=== PATIENT | male | born 1970 | race Caucasian/White ===

== ENCOUNTER 2018-02-24 14:50 | Outpatient (RCR) | payer OTHER ==
[~2018-02-24 14:50] MED LIST: ASPI1TAB PO; OXYC-471 PO
== END 2018-02-27 07:45 | disposition home or self-care (01) ==
PROVIDERS: ATTEND Orthopaedic Surgery
DX: M25.512 Pain in left shoulder (principal); Z98.890 Other specified postprocedural states

== ENCOUNTER 2018-03-13 15:00 | Outpatient (RCR) | payer OTHER | END 2018-04-26 10:02 | disposition home or self-care (01) | PROVIDERS: ATTEND Orthopaedic Surgery | DX: M25.512 Pain in left shoulder (principal); Z98.890 Other specified postprocedural states ==

== ENCOUNTER 2018-12-23 22:31 | Emergency (ER) | payer SELFPAY ==
[~2018-12-23] VITALS: Ht 179.1 cm; Wt 162.4 kg
--- OUTSIDE RECORDS SUMMARY | 2018-12-23 22:38 | XMS REPORT ---
Author Author Migration, Doctor Organization [facility] Address Unknown Phone Unavailable Care Team Providers Care Steamer Blocker Name Role Phone Migration, Doctor Unavailable Unavailable PROBLEMS Unknown Problems ALLERGIES No Information ENCOUNTERS Encounter Location Date Diagnosis [facility] [address] [place] [address] September, Drug screening, pre-employment Z02.1 [facility] [id number] [place] [address] Dec, [facility] [id number] [place] [address] Dec, [facility] [id number] [place] [address] Nov, Acute pain of left shoulder M25.512 ; BMI 45.0-49.9, adult Z68.42 and Elevated blood pressure reading R03.0 [facility] [id number] [place] [address] Nov, Acute pain of left shoulder M25.512 ; Strain of left trapezius muscle, initial encounter S46.812A and BMI 45.0-49.9, adult Z68.42 [facility] [id number] [place] [address] September, Pain in left ankle and joints of left foot M25.572 and Other chronic pain G89.29 [facility] [id number] [place] [address] Aug, [facility] [id number] [place] [address] Aug, [facility] [id number] [place] [address] Jun, [facility] [id number] [address] Jun, [facility] [address] [address] Dec, [facility] [address] [address] Nov, [facility] [address] [address] Oct, [facility] [address] [address] Jul, [facility] [address] [place] [address] May, [facility] [address] [address] Mar, [facility] [address] [address] Mar, [facility] [address] [address] Dec, [facility] [id number] [address] Dec, IMMUNIZATIONS No Known Immunizations SOCIAL HISTORY Never Assessed REASON FOR VISIT [facility] [place] OF CARE VITAL SIGNS MEDICATIONS Unknown Medications RESULTS No Results PROCEDURES No Known procedures INSTRUCTIONS MEDICATIONS ADMINISTERED No Known Medications MEDICAL (GENERAL) HISTORY Type Description Date Medical History Essential hypertension, benign Medical History Pain in joint, site unspecified Surgical History appendectomy Surgical History cardiac cath Surgical History eye surgery as an Surgical History tubes in the ear
--- OUTSIDE RECORDS SUMMARY | 2018-12-23 22:38 | XMS REPORT ---
Author Author Migration, Doctor Organization [facility] Address Unknown Phone Unavailable Care Team Providers Care Internal Audit Senior Manager Name Role Phone Migration, Doctor Unavailable Unavailable PROBLEMS Unknown Problems ALLERGIES No Information ENCOUNTERS Encounter Location Date Diagnosis [facility] [address], [place] [address] Dec, [facility] [id number] [address] Dec, [facility] [id number] [place] [address] Nov, Acute pain of left shoulder M25.512 ; BMI 45.0-49.9, adult Z68.42 and Elevated blood pressure reading R03.0 [facility] [address] [place] [address] Nov, Acute pain of left shoulder M25.512 ; Strain of left trapezius muscle, initial encounter S46.812A and BMI 45.0-49.9, adult Z68.42 [facility] [address], [place] [address] September, Pain in left ankle and joints of left foot M25.572 and Other chronic pain G89.29 [facility] [address], [place] [address] Aug, [facility] [address], [place] [address] Aug, [facility] [id number] [place] [address] Jun, [facility] [address], [place] [address] Jun, [facility] [id number] [address] Dec, [facility] [id number], [place] [address] Nov, [facility] [address], [place] [address] Oct, [facility] [id number], [place] [address] Jul, [facility] [address], [place] [address] May, [facility] [address], [place] [address] Mar, [facility] [address], [place] [address] Mar, [facility] [address], [place] [address] Dec, [facility] [id number], [place] [address] Dec, IMMUNIZATIONS No Known Immunizations SOCIAL HISTORY Never Assessed REASON FOR VISIT [facility] PLAN OF CARE VITAL SIGNS MEDICATIONS Medication Instructions Dosage Frequency Start Date End Date Duration Status Flonase 50 mcg/actuation 1 sprays by Nasal route 2 times per day in each nostril. MUST HAVE APPT FOR FURTHER REFILLS Jun, Active Furosemide 20 mg 1 tablet by Oral route 1 time per day Nov, Active Wellbutrin SR 150 mg 1 Tablet 2 times per day MUST HAVE APPT FOR FURTHER REFILLS Jun, Active Lisinopril-Hydrochlorothiazide 10-12.5 mg take 1 tablet by Oral route 1 time per day MUST HAVE APPT FOR FURTHER REFILLS Jun, Active Potassium Chloride 10 mEq 10 mEq by Oral route 1 time per day take with lasix Nov, Active RESULTS No Results PROCEDURES No Known procedures INSTRUCTIONS MEDICATIONS ADMINISTERED No Known Medications MEDICAL (GENERAL) HISTORY Type Description Date Medical History Essential hypertension, benign Medical History Pain in joint, site unspecified Surgical History appendectomy Surgical History cardiac cath Surgical History eye surgery as an infant Surgical History tubes in the ear
--- OUTSIDE RECORDS SUMMARY | 2018-12-23 22:38 | XMS REPORT ---
Author Author MEGHAN MARX [facility] Address [address] [place] [address] Care Team Providers Care Senior Underwriting Assistant Name Role Phone SHARON MARXTA Unavailable PROBLEMS Unknown Problems ALLERGIES No Known Allergies ENCOUNTERS Encounter Location Date Diagnosis [facility] [address] [place] [address] Dec, [facility] [id number] [place] [address] Dec, [facility] [id number] [place] [address] Nov, Acute pain of left shoulder M25.512 ; BMI 45.0-49.9, adult Z68.42 and Elevated blood pressure reading R03.0 [facility] [address] [place] [address] Nov, Acute pain of left shoulder M25.512 ; Strain of left trapezius muscle, initial encounter S46.812A and BMI 45.0-49.9, adult Z68.42 [facility] [address] [place] [address] September, Pain in left ankle and joints of left foot M25.572 and Other chronic pain G89.29 [facility] [address], [place] [address] Aug, [facility] [id number] [place] [address] Aug, [facility] [address], [place] [address] Jun, [facility] [id number] [place] [address] Jun, [facility] [id number], [place] [address] Dec, [facility] [address], [place] [address] Nov, [facility] [address], [place] [address] Oct, [facility] [address], [place] [address] Jul, [facility] [address] [place] [address] May, [facility] [address], [place] [address] Mar, [facility] [address], [place] [address] Mar, [facility] [address], [place] [address] Dec, [facility] [id number], [place] [address] Dec, IMMUNIZATIONS No Known Immunizations SOCIAL HISTORY Never Assessed REASON FOR VISIT [email or web address] Care, He came in last tuesday to walk in, he took all his meds, shoulder is n ot getting any better, [facility] arm [facility] Activity Details Follow Up 3 months or as indicated by lab Reason:HTN VITAL SIGNS Height 71 in 2017-12-27 Weight 342.3 lbs 2017-12-27 Temperature 98.3 degrees Fahrenheit 2017-12-27 Heart Rate 86 bpm 2017-12-27 Respiratory Rate 18 2017-12-27 BMI 47.74 kg/m2 2017-12-27 Blood pressure systolic 140 mmHg 2017-12-27 Blood pressure diastolic 84 mmHg 2017-12-27 MEDICATIONS Medication Instructions Dosage Frequency Start Date End Date Duration Status Hydrocodone-Acetaminophen 5-325 MG Orally every 6 hrs 1 tablet as needed Nov, Dec, 10 days Active RESULTS Name Result Date Reference Range MRI : Shoulder, Left 2018-01-13 PROCEDURES No Known procedures INSTRUCTIONS MEDICATIONS ADMINISTERED No Known Medications MEDICAL (GENERAL) HISTORY Type Description Date Medical History Essential hypertension, benign Medical History Pain in joint, site unspecified Surgical History appendectomy Surgical History cardiac cath Surgical History eye surgery as an infant Surgical History tubes in the ear
--- OUTSIDE RECORDS SUMMARY | 2018-12-23 22:38 | XMS REPORT ---
Author Author KING MEGHAN [facility] Address [address] [place] [address] Care Team Providers Care Fiber Locking Supervisor Name Role Phone SHARON MARXTA Unavailable PROBLEMS Unknown Problems ALLERGIES No Information ENCOUNTERS Encounter Location Date Diagnosis [facility] [address] [address] Dec, [facility] [id number] [place] [address] Dec, [facility] [id number] [place] [address] Nov, Acute pain of left shoulder M25.512 ; BMI 45.0-49.9, adult Z68.42 and Elevated blood pressure reading R03.0 [facility] [address] [place] [address] Nov, Acute pain of left shoulder M25.512 ; Strain of left trapezius muscle, initial encounter S46.812A and BMI 45.0-49.9, adult Z68.42 [facility] [address] [address] September, Pain in left ankle and joints of left foot M25.572 and Other chronic pain G89.29 [facility] [address] [address] Aug, [facility] [id number] [place] [address] Aug, [facility] [address] [address] Jun, [facility] [id number] [place] [address] Jun, [facility] [address] [address] Dec, [facility] [address] [address] Nov, [facility] [address] [address] Oct, [facility] [address] [place] [address] Jul, [facility] [address] [place] [address] May, [facility] [id number] [place] [address] Mar, [facility] [address] [address] Mar, [facility] [address] [address] Dec, [facility] [address] [address] Dec, IMMUNIZATIONS No Known Immunizations SOCIAL HISTORY Never Assessed REASON FOR VISIT scheduling an a MRI PLAN OF CARE VITAL SIGNS MEDICATIONS Unknown [...]
--- OUTSIDE RECORDS SUMMARY | 2018-12-23 22:39 | XMS REPORT ---
Author Author KING MEGHAN [facility] Address [address] [place] [address] Care Team Providers Care Instrument Mechanics Supervisor Name Role Phone SHARON MARXTA Unavailable PROBLEMS Unknown Problems ALLERGIES No Information ENCOUNTERS Encounter Location Date Diagnosis [facility] [address], [place] [address] Dec, [facility] [id number] [place] [address] Dec, [facility] [id number] [place] [address] Nov, Acute pain of left shoulder M25.512 ; BMI 45.0-49.9, adult Z68.42 and Elevated blood pressure reading R03.0 [facility] [address] [place] [address] Nov, Acute pain of left shoulder M25.512 ; Strain of left trapezius muscle, initial encounter S46.812A and BMI 45.0-49.9, adult Z68.42 [facility] [address], [place] [address] September, Pain in left ankle and joints of left foot M25.572 and Other chronic pain G89.29 [facility] [address], [place] [address] Aug, [facility] [id number] [place] [address] Aug, [facility] [address], [place] [address] Jun, [facility] [id number] [place] [address] Jun, [facility] [address], [place] [address] Dec, [facility] [address], [place] [address] Nov, [facility] [address], [place] [address] Oct, [facility] [address] [place] [address] Jul, [facility] [address] [place] [address] May, [facility] [id number] [place] [address] Mar, [facility] [address], [place] [address] Mar, [facility] [address], [place] [address] Dec, [facility] [address], [place] [address] Dec, IMMUNIZATIONS No Known Immunizations SOCIAL HISTORY Never Assessed REASON FOR VISIT MRI status PLAN OF CARE VITAL SIGNS MEDICATIONS Unknown [...]
--- OUTSIDE RECORDS SUMMARY | 2018-12-23 22:39 | XMS REPORT ---
Author Author MEGGAN Gordon Organization [facility] Address [address] [place] [address] Care Team Providers Care Research Assistant Member Name Role Phone MEGGAN Gordon Unavailable PROBLEMS Unknown Problems ALLERGIES No Known Allergies ENCOUNTERS Encounter Location Date Diagnosis [address] [address] [address] Dec, [address] [address] Dec, [place] [address] [address] Nov, Acute pain of left shoulder M25.512 ; BMI 45.0-49.9, adult Z68.42 and Elevated blood pressure reading R03.0 [facility] [id number] [place] [address] Nov, Acute pain of left shoulder M25.512 ; Strain of left trapezius muscle, initial encounter S46.812A and BMI 45.0-49.9, adult Z68.42 [place] [address] [address] September, Pain in left ankle and joints of left foot M25.572 and Other chronic pain G89.29 [place] [id number] [place] [address] Aug, [place] [address] [address] Aug, [place] [id number] [place] [address] Jun, [place] [address] [facility] [id number] [address] Jun, [facility] [id number], [place] [address] Dec, [facility] [address], [place] [address] Nov, [facility] [address], [place] [address] Oct, [facility] [address], [place] [address] Jul, [facility] [address] [place] [address] May, [facility] [address], [place] [address] Mar, [facility] [address], [place] [address] Mar, [facility] [id number], [place] [address] Dec, [facility] [id number], [place] [address] Dec, IMMUNIZATIONS No Known Immunizations SOCIAL HISTORY Never Assessed REASON FOR VISIT left shoulder pain since tuesday. pt was using a heavy machinery et was reachin g around it...states it weighed at least 100 lbs, et felt something pull in his left shoulder. aviva, giovani raise his arm now. PLAN OF CARE Activity Details Follow Up prn Reason: VITAL SIGNS Height 71 in 2017-12-19 Weight 350.0 lbs 2017-12-19 Temperature 98.5 degrees Fahrenheit 2017-12-19 Heart Rate 84 bpm 2017-12-19 Respiratory Rate 20 2017-12-19 BMI 48.81 kg/m2 2017-12-19 Blood pressure systolic 142 mmHg 2017-12-19 Blood pressure diastolic 88 mmHg 2017-12-19 MEDICATIONS Medication Instructions Dosage Frequency Start Date End Date Duration Status PredniSONE 20 MG Orally Once a day 2 tablet 24h Nov, Nov, 5 days Active RESULTS Name Result Date Reference Range Xray : Shoulder, Left 2 view (IN HOUSE) 2017-12-19 PROCEDURES Procedure Date Ordered Result Body Site X-RAY EXAM OF SHOULDER December 19, 2017 INSTRUCTIONS MEDICATIONS ADMINISTERED No Known Medications MEDICAL (GENERAL) HISTORY Type Description Date Medical History Essential hypertension, benign Medical History Pain in joint, site unspecified Surgical History appendectomy Surgical History cardiac cath Surgical History eye surgery as an infant Surgical History tubes in the ear
--- OUTSIDE RECORDS SUMMARY | 2018-12-23 22:39 | XMS REPORT | Continuity of Care Document ---
Author Organization Unknown Address Unknown Phone Unavailable Allergies There is no data. Medications There is no data. Problems Date Dx Coded Attending Type Code Diagnosis Diagnosed By 01/06/2012 401.1 HYPERTENSION, BENIGN ESSENTIAL 01/06/2012 719.40 PAIN IN JOINT SITE UNSPECIFIED 01/06/2012 V70.0 ROUTINE GENERAL MEDICAL EXAMINATION AT A HEALTH CARE FACILITY 01/06/2012 KORI MNOTALVO DO 401.1 ESSENTIAL HYPERTENSION BENIGN 01/06/2012 KORI MONTALVO DO 719.40 ARTHRALGIA 01/06/2012 KORI MONTALVO DO V70.0 ROUTINE GENERAL MEDICAL EXAMINATION AT A HEALTH CARE FACILITY 01/06/2012 401.1 HYPERTENSION, BENIGN ESSENTIAL 01/06/2012 719.40 PAIN IN JOINT SITE UNSPECIFIED 01/06/2012 V70.0 ROUTINE GENERAL MEDICAL EXAMINATION AT A HEALTH CARE FACILITY 04/17/2012 477.9 RHINITIS 04/17/2012 KORI MONTALVO DO 477.9 RHINITIS 04/17/2012 477.9 RHINITIS 06/19/2012 782.3 EDEMA 06/19/2012 V58.69 LONG-TERM (CURRENT) USE OF OTHER MEDICATIONS 06/19/2012 KORI MONTALVO DO 782.3 EDEMA 06/19/2012 KORI MONTALVO DO V58.69 LONG-TERM (CURRENT) USE OF OTHER MEDICATIONS 07/28/2012 KORI MONTALVO DO 368.8 blurry vision Procedures There is no data. Results There is no data. Encounters ACCT No. Visit Date/Time Discharge Status Pt. Type Provider Facility Loc./Unit Complaint [id number] 12/04/2018 17:50:00 12/04/2018 23:59:59 CLS Outpatient MEGHAN MARX [facility] [id number] 07/28/2012 10:08:00 07/28/2012 23:59:59 CLS Outpatient KORI MONTALVO DO [id number] 06/19/2012 10:37:00 06/19/2012 23:59:59 CLS Outpatient [id number] 04/17/2012 15:48:00 04/17/2012 23:59:59 [facility] Outpatient
--- NOTE | 2018-12-23 22:44 | ED EENT ---
History of Present Illness General Chief Complaint: Eye Problems Stated Complaint: RT EYE BURNING/ITCHING/DISCHARGE Source: patient Exam Limitations: no limitations History of Present Illness Date Seen by Provider: Dec 23, 2018 Time Seen by Provider: 22:44 Initial Comments eye scratchiness with discharge, minimal discomfort. Location: eye (R) Prearrival Treatment: flushing eyes Allergies and Home Medications Allergies Coded Allergies: No Known Drug Allergies (Unverified , 11/26/09) Home Medications Ciprofloxacin HCl 5 Ml Drops, 2 DROPS OP QID 3 Drops Each Ear Prescribed by: JOSE MARX on 12/23/18 2322 Oxycodone HCl/Acetaminophen 1 Each Tablet, 1 EACH PO Q4H Prescribed by: BONIFACIO BOYER on 01/25/18 1107 Patient Home Medication List Home Medication List Reviewed: Yes Review of Systems Review of Systems Constitutional: no symptoms reported Eyes: Drainage, Foreign Body Sensation, Inflammation, Pain Ears: No Symptoms Reported Nose: no symptoms reported Mouth: no symptoms reported Throat: no symptoms reported Respiratory: no symptoms reported Cardiovascular: no symptoms reported Skin: no symptoms reported Neurological: No Symptoms Reported Hematologic/Lymphatic: No Symptoms Reported All Other Systems Reviewed Negative Unless Noted: Yes Past Errcrcg-Bnnogb-Uedivr Hx Patient Social History Recent Hopitalizations: No Seasonal Allergies Seasonal Allergies: No Past Medical History Reproductive Disorders: No Physical Exam Vital Signs Vital Signs - First Documented 12/23/18 12/23/18 22:35 23:24 Temp 97.5 Pulse 92 Resp 18 B/P (MAP) 162/97 (118) Pulse Ox 97 O2 Delivery Room Air Height, Weight, BMI Height: 5'11.00" Weight: 348lbs. 0.0oz. 157.591056zi; 48.5 BMI Method: General Appearance: WD/WN, no apparent distress Eyes: right eye conjunctival inflammation Nose: normal inspection Neck: non-tender, full range of motion, supple Respiratory: no respiratory distress, no accessory muscle use Neurologic/Psychiatric: tapping machine operator II-XII nml as tested, no motor/sensory deficits Skin: normal color, warm/dry Progress/Results/Core Measures Results/Orders Vital Signs/I&O 12/23/18 12/23/18 22:35 23:24 Temp 97.5 97.5 Pulse 92 92 Resp 18 18 B/P (MAP) 162/97 (118) 162/97 (118) Pulse Ox 97 O2 Delivery Room Air Room Air Departure Impression Primary Impression: Conjunctivitis Disposition: HOME, SELF-CARE Condition: Stable Departure-Patient Inst. Referrals: NO,LOCAL PHYSICIAN (PCP/Family) Primary Care Physician Scripts Ciprofloxacin HCl (Ciloxan) 5 Ml Drops 2 DROPS OP QID for Eye Redness for 5 Days, #5 ML 0 Refills 3 Drops Each Ear Prov: JOSE LITTLE MD 12/23/18 JOSE LITTLE MD Dec 23, 2018 22:44
[2018-12-23] MEDS ORDERED: CIPR5DRO OP ×2 (23:19→23:22)
[2018-12-23 23:24] VITALS: BP 162/97
== END 2018-12-23 23:26 | disposition home or self-care (01) ==
LOC: EDUNIT# 22:31 → ER FS 22:34
DX: H10.9 Unspecified conjunctivitis (principal)
CPT/HCPCS: 99282

== ENCOUNTER 2019-10-21 00:41 | Emergency (ER) | payer OTHER ==
[~2019-10-21] VITALS: Ht 180 cm; Wt 161.0 kg
[~2019-10-21 00:41] MED LIST changes: +CIPR5DRO OP
--- OUTSIDE RECORDS SUMMARY | 2019-10-21 00:49 | XMS REPORT | Continuity of Care Document ---
Author Organization Unknown Address Unknown Phone Unavailable Allergies Active Description Code Type Severity Reaction Onset Reported/Identified Relationship to Patient Clinical Status Yes No Known Drug Allergies [id number] Drug Allergy Unknown N/A 11/26/2009 Medications There is no data. Problems Date Dx Coded Attending Type Code Diagnosis Diagnosed By LUCIANA WESLEY, LAUREL Loepz Ot M25.512 PAIN IN LEFT SHOULDER LUCIANA WESLEY, LAUREL Lopez Ot Z98.890 OTHER SPECIFIED POSTPROCEDURAL STATES MEGHAN MARX GLASS BLOWING LATHE OPERATOR Ot M25.512 PAIN IN LEFT SHOULDER 01/06/2012 401.1 HYPE RTENSION, BENIGN ESSENTIAL 01/06/2012 719.40 INES N IN JOINT SITE UNSPECIFIED 01/06/2012 V70.0 ROUT INE GENERAL MEDICAL EXAMINATION AT A HEALTH CARE FACILITY 01/06/2012 KORI MONTALVO DO 401.1 ESSENTIAL HYPERTENSION BENIGN 01/06/2012 KORI MONTALVO DO 719.40 ARTHRALGIA 01/06/2012 KORI MONTALVO DO V70.0 ROUTINE GENERAL MEDICAL EXAMINATION AT A HEALTH CARE FACILITY 01/06/2012 401.1 HYPE RTENSION, BENIGN ESSENTIAL 01/06/2012 719.40 INES N IN JOINT SITE UNSPECIFIED 01/06/2012 V70.0 ROUT INE GENERAL MEDICAL EXAMINATION AT A HEALTH CARE FACILITY 04/17/2012 477.9 RHINITIS 04/17/2012 KORI MONTALVO DO 477.9 RHINITIS 04/17/2012 477.9 RHINITIS 06/19/2012 782.3 EDEMA 06/19/2012 V58.69 JAYLYN G-TERM (CURRENT) USE OF OTHER MEDICATIONS 06/19/2012 KORI MONTALVO DO 782.3 EDEMA 06/19/2012 KORI MONTALVO DO V58.69 LONG-TERM (CURRENT) USE OF OTHER MEDICATIONS 07/28/2012 KORI MONTALVO DO 368.8 blurry vision 01/19/2018 MEGHAN MARX GLASS BLOWING LATHE OPERATOR Ot M25.512 PAIN IN LEFT SHOULDER 01/19/2018 LAUREL CHOWDHURY MD Ot M25.512 PAIN IN LEFT SHOULDER 01/20/2018 LAUREL CHOWDHURY MD Ot Z01.818 ENCOUNTER FOR OTHER PREPROCEDURAL EXAMIN 01/23/2018 LAUREL CHOWDHURY MD, Ot Z01.818 ENCOUNTER FOR OTHER PREPROCEDURAL EXAMIN 01/25/2018 LAUREL CHOWDHURY MD Ot E66.01 MORBID (SEVERE) OBESITY DUE TO EXCESS CA 01/25/2018 LAUREL CHOWDHURY MD Ot I1 0 ESSENTIAL (PRIMARY) HYPERTENSION 01/25/2018 LAUREL CHOWDHURY MD Ot 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 01/25/2018 LAUREL CHOWDHURY MD Ot X50.9XXA OTHER AND UNSPECIFIED OVREXRTN OR STRNOU 01/25/2018 LAUREL CHOWDHURY MD Ot Y99.0 CIVILIAN ACTIVITY DONE FOR INCOME OR PAY 01/25/2018 LAUREL CHOWDHURY MD Ot Z68.42 BODY MASS INDEX (BMI) 45.0-49.9, ADULT 01/26/2018 LAUREL CHOWDHURY MD Ot M25.512 PAIN IN LEFT SHOULDER 01/26/2018 LAUREL CHOWDHURY MD Ot M25.512 PAIN IN LEFT SHOULDER 01/27/2018 LAUREL CHOWDHURY MD Ot M25.512 PAIN IN LEFT SHOULDER 01/27/2018 LAUREL CHOWDHURY MD Ot E66.01 MORBID (SEVERE) OBESITY DUE TO EXCESS CA 01/27/2018 LAUREL CHOWDHURY MD Ot I1 0 ESSENTIAL (PRIMARY) HYPERTENSION 01/27/2018 LAUREL CHOWDHURY MD Ot 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 01/27/2018 LAUREL CHOWDHURY MD Ot X50.9XXA OTHER AND UNSPECIFIED OVREXRTN OR STRNOU 01/27/2018 LAUREL CHOWDHURY MD Ot Y99.0 CIVILIAN ACTIVITY DONE FOR INCOME OR PAY 01/27/2018 LAUREL CHOWDHURY MD Ot Z68.42 BODY MASS INDEX (BMI) 45.0-49.9, ADULT 02/10/2018 LAUREL CHOWDHURY MD Ot M25.512 PAIN IN LEFT SHOULDER 02/10/2018 ZAFUTA MD, LAUREL P Ot Z98.890 OTHER SPECIFIED POSTPROCEDURAL STATES 02/10/2018 LUCIANA WESLEY, LAUREL P Ot M25.512 PAIN IN LEFT SHOULDER 02/10/2018 LUCIANA WESLEY, LAUREL P Ot Z98.890 OTHER SPECIFIED POSTPROCEDURAL STATES 02/27/2018 LUCIANA WESLEY, LAUREL Lopez Ot M25.512 PAIN IN LEFT SHOULDER 02/27/2018 LUCIANA WESLEY, LAUREL P Ot Z98.890 OTHER SPECIFIED POSTPROCEDURAL STATES 02/27/2018 LUCIANA WESLEY, LAUREL P Ot M25.512 PAIN IN LEFT SHOULDER 02/27/2018 LUCIANA WESLEY, LAUREL P Ot Z98.890 OTHER SPECIFIED POSTPROCEDURAL STATES 03/03/2018 LUCIANA WESLEY, LAUREL Lopez Ot M25.512 PAIN IN LEFT SHOULDER 03/03/2018 LUCIANA WESLEY, LAUREL Lopez Ot Z98.890 OTHER SPECIFIED POSTPROCEDURAL STATES 04/26/2018 LUCIANA WESLEY, LAUREL Lopez Ot M25.512 PAIN IN LEFT SHOULDER 04/26/2018 LAUREL CHOWDHURY MD Ot Z98.890 OTHER SPECIFIED POSTPROCEDURAL STATES 12/27/2018 JOSE LITTLE MD H10.9 UNSPECIFIED CONJUNCTIVITIS 12/27/2018 JOSE LITTLE MD H57.89 OTHER SPECIFIED DISORDERS OF EYE AND ADN Procedures There is no data. Results Test Result Range Methicillin resistant Staphylococcus aur eus (MRSA) screening culture - 01/20/18 09:30 Methicillin resistant Staphylococcus aureus (MRSA) scr eening culture NEG NRG Encounters ACCT No. Visit Date/Time Discharge Status Pt. Type Provider Facility Loc./Unit Complaint [id number] 04/14/2019 10:30:00 04/14/2019 23:59:5 9 CLS Outpatient MEGHAN MARX [facility] [id number] 07/28/2012 10:08:00 07/28/2012 23:59: 59 CLS Outpatient KORI MONTALVO DO [id number] 06/19/2012 10:37:00 06/19/2012 23:59: 59 CLS Outpatient [id number] 04/17/2012 15:48:00 04/17/2012 23:59:5 9 CLS Outpatient [id number] 12/23/2018 22:34:00 019 23:26:00 DIS Outpatient ANABEL WESLEY, CONTRERAS ECHEVERRIA J [facility] ER FS RT EYE BURNING/ITCHING/DISCHARGE [id number] 03/13/2018 15:00:00 018 10:02:00 DIS Out[facility]; S/P BICEPS TENOTOMY [id number] 02/24/2018 14:50:00 07:45:00 DIS Outpatient LAUREL CHOWDHURY MD Via [facility] ROTATOR CUFF TEAR PARTI AL LT; S/P BICEPS TENOTOMY [id number] 01/25/2018 08:37:00 15:25:00 DIS Outpatient LAUREL CHOWDHURY MD [facility] LEFT ROTATOR CUFF TEAR [id number] 01/20/2018 08:59:00 018 23:59:59 CLS Outpatient LAUREL CHOWDHURY MD [facility] PREOP LEFT ROTATOR CUFF TEAR [id number] 01/17/2018 08:17:00 018 09:48:00 DIS Outpatient MEGHAN MARX APRN [facility] REHAB L SHOULDER PAIN [id number] 01/20/2018 08:08:00 018 08:08:00 CAN Outpatient LAUREL CHOWDHURY MD [facility] PREOP LEFT SHOULDER ROATOR CU FF
--- OUTSIDE RECORDS SUMMARY | 2019-10-21 00:49 | XMS REPORT ---
Author Author Devaughn Eastman Doctor Organization [facility] Address Unknown Phone Unavailable Care Team Providers Care Direct Support Worker Name Role Phone Migration, Doctor Unavailable Unavailable PROBLEMS Type Condition ICD9-CM Code [id number] Code Onset Dates Condition S tatus SNOMED Code Problem Right sided sciatica M54.31 Active [id number] ALLERGIES No Information ENCOUNTERS Encounter Location Date Diagnosis [facility] IN [facility] [address] [facility] [id number] [address] [place] [id number] Nov, Right sided sciatica M54.31 and Morbid obesity E66.01 [facility] [address] [place] [address] September, Drug screening, pre-employme nt Z02.1 [facility] [address] [id number] [place] [address] Dec, [facility] [address] [address] Dec, [place] [address] [place] [id number] [place] [address] Nov, Acute pain of left shoulder M25.512 ; BM I 45.0-49.9, adult Z68.42 and Elevated blood pressure reading R03.0 [facility] IN [facility] [address] [facility] [id number] [address] [place] [phone] Nov, Acute pain of left shoulder M25.512 ; Strain of left trapezius muscle, initial encounter S46.812A and BMI 45.0-49.9, adult Z68.42 [facility] [address] [id number] [place] [address] September, Pain in left ankle and joints of left fo ot M25.572 and Other chronic pain G89.29 [facility] [address] [id number] [place] [address] Aug, [facility] [address] [id number] [place] [address] Aug, [facility] [address] [id number] [place] [address] Jun, [facility] [address] [id number] [place] [address] Jun, [facility] [address] [id number] [place] [address] Dec, [facility] [address] [id number] [place] [address] Nov, [facility] [id number] [place] [address] Oct, [facility] [id number] [place] [address] Jul, [facility] [id number] [place] [address] May, [facility] [address] [id number] [place] [address] Mar, [facility] [id number] [place] [address] Mar, [facility] [address] [id number] [place] [address] Dec, [facility] [id number] [place] [address] Dec, IMMUNIZATIONS No Known Immunizations SOCIAL HISTORY Never Assessed REASON FOR VISIT PLAN OF CARE VITAL SIGNS MEDICATIONS No Known Medications RESULTS No Results PROCEDURES No Known procedures INSTRUCTIONS MEDICATIONS ADMINISTERED No Known Medications MEDICAL (GENERAL) HISTORY Type Description Date Medical History Essential hypertension, benign Medical History Pain in joint, site unspecified Surgical History appendectomy Surgical History cardiac cath Surgical History eye surgery as an infant Surgical History tubes in the ear Surgical History left shoulder operation
[2019-10-21 00:55] VITALS: BP 146/88
--- NOTE | 2019-10-21 01:10 | ED Upper Extremity ---
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 He is not having any numbness, but he is having some tingling in his fingertips on the right side. No weakness. No previous history of injury or surgery to his right shoulder. No chest pain, shortness of breath. Allergies and Home Medications Allergies Coded Allergies: No Known Drug Allergies (Unverified , 11/26/09) Home Medications Ciprofloxacin HCl 5 Ml Drops, 2 DROPS OP QID 3 Drops Each Ear Prescribed by: JOSE MARX on 12/24/18 0546 Ciprofloxacin HCl 5 Ml Drops, 2 DROPS OP QID 3 Drops Each Ear Prescribed by: JOSE MARX on 12/23/18 2322 Oxycodone HCl/Acetaminophen 1 Each Tablet, 1 EACH PO Q4H Prescribed by: BONIFACIO BOYER on 01/25/18 1107 Patient Home Medication List Home Medication List Reviewed: Yes Review of Systems Constitutional: No chills, No diaphoresis EENTM: No ear discharge, No ear pain Respiratory: No cough, No short of breath Cardiovascular: No edema, No Hx of Intervention, No palpitations Gastrointestinal: No abdominal pain, No nausea Genitourinary: No discharge, No dysuria Musculoskeletal: see HPI; No back pain; joint pain All Other Systems Reviewed Negative Unless Noted: Yes Past Juubyrt-Hojkes-Gvazqz Hx Patient Social History Alcohol Use: Denies Use Recreational Drug Use: No Smoking Status: Never a Smoker Recent Foreign Travel: No Contact w/Someone Who Travel: No Recent Hopitalizations: No Seasonal Allergies Seasonal Allergies: No Past Medical History Reproductive Disorders: No Physical Exam Vital Signs Vital Signs - First Documented 10/21/19 00:55 Temp 36.8 Pulse 88 Resp 20 B/P (MAP) 146/88 (107) Pulse Ox 96 O2 Delivery Room Air Capillary Refill : Height, Weight, BMI Height: 5'10.50" Weight: 358lbs. 0.0oz. 162.217341dw; 48.5 BMI Method:Stated General Appearance: WD/WN, mild distress HEENT: PERRL/EOMI, pharynx normal Neck: non-tender, full range of motion, supple, normal inspection Cardiovascular: normal peripheral pulses, regular rate, rhythm Respiratory: normal breath sounds, no respiratory distress, no accessory muscle use Shoulder: normal inspection, limited ROM (lacks about 15 of anterior extension of the right shoulder. Full abduction right shoulder.), pain, soft tissue tender ness (over the trapezius and anterior glenohumeral capsule.) Elbow/Forearm: normal inspection, non-tender, no evidence of injury, normal ROM, Right Progress/Results/Core Measures Results/Orders My Orders Orders - TANYA BUI Naproxen Tablet (Naprosyn Tablet) (10/21/19 01:15) Shoulder, Right, 3 Views (10/21/19 01:02) Medications Given in ED Current Medications Medications Dose Ordered Sig/Trinity Route Start Time Stop Time Status Last Admin Dose Admin Naproxen 500 mg ONCE ONCE PO 10/21/19 01:15 10/21/19 01:16 DC 10/21/19 01:28 500 MG Vital Signs/I&O 10/21/19 00:55 Temp 36.8 Pulse 88 Resp 20 B/P (MAP) 146/88 (107) Pulse Ox 96 O2 Delivery Room Air Progress Progress Note : Time: 01:07 Progress Note Plain films and then we have given him conservative instruction as well as we'll put him in a sling. Follow-up with occupational health. Diagnostic Imaging Diagonstic Imaging: Xray Plain Films/CT/US/NM/MRI: other (right shoulder) Comments No acute osseous abnormality. Reviewed: Reviewed by Me Departure Impression Primary Impression: Right shoulder injury Qualified Codes: S49.91XA - Unspecified injury of right shoulder and upper arm, initial encounter Disposition: HOME, SELF-CARE Condition: Stable Departure-Patient Inst. Decision time for Depature: 01:30 Referrals: NO,LOCAL PHYSICIAN (PCP/Family) Primary Care Physician Patient Instructions: Shoulder Sprain (DC), How to Use a Shoulder Sling, Moderate Sedation in Children (DC) Add. Discharge Instructions: Keep your right arm in a sling for the first week. Take it out several times a day to do passive range of motion exercises. During the second week you can take it out and do full active range of motion exercises. Plan to follow-up with occupational health and take instructions from them. Ice applied to the shoulder for the first 1-2 days as necessary for pain and swelling. Heating pads can be helpful. Topical creams such as icy hot, Biofreeze etc. Tylenol 1000 mg every 8 hours as needed for pain. Ibuprofen 800 mg every 8 hours as needed for pain. All discharge instructions reviewed with patient and/or family. Voiced understanding. Work/School Note: Work Release Form Date Seen in the Emergency Department: October 21, 2019 Return to Work: October 22, 2019 Restrictions: Need Release from Doctor Other Restrictions Listed Below: Wear sling until 10/29/19. Restrictions: Do not lift greater than 20 pounds with right arm until 11/05/19 TANYA BUI October 21, 2019 01:10
[2019-10-21] MEDS ORDERED: NAPROXEN 250 MG (NAPROSYN) TABLET PO ONE (01:15)
--- NOTE | 2019-10-21 06:49 | Diagnostic Imaging Report ---
CLINICAL HISTORY: Right shoulder pain. COMPARISON: None. TECHNIQUE: 3 views of the right shoulder. FINDINGS: There is no acute fracture or dislocation of the right shoulder. Alignment is anatomic. The imaged joint spaces are preserved. No joint effusion is seen in the right shoulder. The surrounding soft tissues are unremarkable. The included right lung is clear. IMPRESSION: 1. No acute fracture or dislocation in the right shoulder. Dictated by: Dictated on workstation # [id number]
== END 2019-10-21 01:39 | disposition home or self-care (01) ==
LOC: EDUNIT# 00:41 → ER 00:45
DX: S49.91XA Unspecified injury of right shoulder and upper arm, initial encounter (principal); X50.0XXA Overexertion from strenuous movement or load, initial encounter; Y92.59 Other trade areas as the place of occurrence of the external cause
CPT/HCPCS: 73030

== ENCOUNTER 2020-02-22 07:03 | Emergency (ER) | payer OTHER ==
[~2020-02-22] VITALS: Ht 177 cm; Wt 173.0 kg
[2020-02-22] MEDS ORDERED: ORPHENADRINE 60 MG/2 ML (NORFLEX) AMP (ED ONLY) IM ONE (07:30)
[2020-02-22] MEDS ORDERED: KETOROLAC 30 MG/ML VIAL IM ONE (07:30)
--- NOTE | 2020-02-22 07:55 | NUR ---
PT SCHEDULED TO HAVE SURG ON R SHOULDER IN THE NEAR FUTURE.
[2020-02-22] MEDS ORDERED: TRIAMCINOLONE ACET (KENALOG-40) 40 MG/ML 1 ML VIAL IM ONE (08:30)
[2020-02-22] MEDS ORDERED: LIDOCAINE 1% INJ 20 ML 20 ML VIAL INJ ONE (08:30)
[2020-02-22] MEDS ORDERED: TRAM-42 PO (08:47)
[2020-02-22] MEDS ORDERED: CYCL10TA9 PO (08:47)
--- NOTE | 2020-02-22 08:48 | ED Upper Extremity ---
General Chief Complaint: Upper Extremity Stated Complaint: R SHOULDER INJ Nursing Triage Note: PT HAS R SHOULDER INJURY FROM WORK IN SEPTEMBER AND AWOKE THIS AM. PT STATES R SIDE OF NECK PAINFUL, STIFF TO MOVE, SL SWOLLEN. STATES MAKES HIM DIZZY AT TIMES Nursing Sepsis Screen: No Definite Risk Source: patient Exam Limitations: no limitations History of Present Illness Date Seen by Provider: Feb 22, 2020 Time Seen by Provider: 07:23 Initial Comments This 49-year-old gentleman presents to the emergency room with complaints of pain in the deltoid musculature on the right. He has been struggling with a rotator cuff tear injury for a while and has surgical consult pending. There has been no acute injury causing the pain today. The pain he is experiencing today is new. He denies any injury and he woke with the pain. He also has had a few brief bouts of vertigo this morning. Blood pressure is significantly elevated as well. He does not have a history of hypertension. Allergies and Home Medications Allergies Coded Allergies: No Known Drug Allergies (Unverified , 11/26/09) Home Medications Ciprofloxacin HCl 5 Ml Drops, 2 DROPS OP QID 3 Drops Each Ear Prescribed by: JOSE MARX on 12/24/18 0546 Ciprofloxacin HCl 5 Ml Drops, 2 DROPS OP QID 3 Drops Each Ear Prescribed by: JOSE MARX on 12/23/18 2322 Cyclobenzaprine HCl 10 Mg Tablet, 10 MG PO Q8H PRN for SPASMS Prescribed by: MARVIN MUÑOZ on 02/22/20 0847 Oxycodone HCl/Acetaminophen 1 Each Tablet, 1 EACH PO Q4H Prescribed by: BONIFACIO BOYER on 01/25/18 1107 Tramadol HCl 50 Mg Tablet, 50 MG PO Q6H PRN for PAIN-BREAKTHROUGH Prescribed by: MARVIN MUÑOZ on 02/22/20 0848 Patient Home Medication List Home Medication List Reviewed: Yes Review of Systems Constitutional: no symptoms reported EENTM: no symptoms reported Respiratory: no symptoms reported Cardiovascular: no symptoms reported Gastrointestinal: no symptoms reported Genitourinary: no symptoms reported Musculoskeletal: see HPI Skin: no symptoms reported Psychiatric/Neurological: No Symptoms Reported Past T[place]u-Evnntx-Ooigky Hx Past Med/Social Hx: Reviewed Nursing Past Med/Soc Hx Patient Social History Alcohol Use: Denies Use Recreational Drug Use: No Smoking Status: Never a Smoker Recent Foreign Travel: No Contact w/Someone Who Travel: No Recent Infectious Disease Expo: No Recent Hopitalizations: No Physical Abuse: No Sexual Abuse: No Seasonal Allergies Seasonal Allergies: No Past Medical History Surgeries: Yes (surgery for lazy eye) Appendectomy, Orthopedic Respiratory: No Cardiac: No Neurological: No Reproductive Disorders: No Gastrointestinal: No (\\) Musculoskeletal: Yes (Left shoulder, right rotator cuff tear) Endocrine: No Cancer: No Psychosocial: No Integumentary: No Blood Disorders: No Physical Exam Vital Signs Vital Signs - First Documented 02/22/20 07:10 Temp 36.2 Pulse 78 Resp 18 B/P (MAP) 178/136 (150) Pulse Ox 98 Capillary Refill : Less Than 3 Seconds Height, Weight, BMI Height: 5'10.50" Weight: 358lbs. 0.0oz. 162.856470ro; 55.00 BMI Method:Stated General Appearance: WD/WN, mild distress HEENT: normal ENT inspection Neck: normal inspection Cardiovascular: regular rate, rhythm, no edema, no murmur Respiratory: lungs clear, normal breath sounds, no respiratory distress Gastrointestinal: non tender, soft Shoulder: normal inspection, no evidence of injury, soft tissue tenderness (tenderness throughout the superior aspect of the trapezius muscle) Elbow/Forearm: normal inspection, non-tender, no evidence of injury Wrist: Yes normal inspection, Yes non-tender, Yes no evidence of injury Hand: normal inspection, non-tender, no evidence of injury Neurologic/Tendon: normal sensation, normal motor functions, normal tendon functions Neurologic/Psychiatric: wrapper hands sprayer II-XII nml as tested, alert, normal mood/affect, motor weakness (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 Sterile gloves were used to palpate the skin. The most tender areas along the trapezius muscle were identified. 40 mg of Kenalog and 4 mL of lidocaine were evenly distributed along this area. Patient tolerated the procedure well and experienced immediate relief. Progress/Results/Core Measures Results/Orders My Orders Orders - MARVIN ZUÑIGA MD Ketorolac Injection (Toradol Injection) (02/22/20 07:30) Orphenadrine Inj (Ed Only) (Norflex Inje (02/22/20 07:30) Lidocaine 1% Inj 20 Ml (Xylocaine 1% Inj (02/22/20 08:30) Triamcinolone Acetonide Im (Kenalog-40) (02/22/20 08:30) Medications Given in ED Current Medications Medications Dose Ordered Sig/Trinity Route Start Time Stop Time Status Last Admin Dose Admin Ketorolac Tromethamine 30 mg ONCE ONCE IM 02/22/20 07:30 02/22/20 07:31 DC 02/22/20 07:44 30 MG Lidocaine HCl 20 ml ONCE ONCE INJ 02/22/20 08:30 02/22/20 08:31 DC 02/22/20 08:26 4 ML Orphenadrine Citrate 60 mg ONCE ONCE IM 02/22/20 07:30 02/22/20 07:31 DC 02/22/20 07:44 60 MG Triamcinolone Acetonide 40 mg ONCE ONCE IM 02/22/20 08:30 02/22/20 08:31 DC 02/22/20 08:26 40 MG Vital Signs/I&O 02/22/20 02/22/20 07:10 08:58 Temp 36.2 Pulse 78 72 Resp 18 18 B/P (MAP) 178/136 (150) 159/113 (150) Pulse Ox 98 98 Blood Pressure Mean: 150 Progress Progress Note : Progress Note She was treated with Toradol and Norflex which did significantly reduce his pain. I offered local injection of steroid and lidocaine which she accepted. Blood pressure when we were out of the room improved. However, in the presence of health care providers blood pressure increased again. I encouraged him to follow-up and have his blood pressure checked again in the outpatient setting. After risks and benefits were reviewed, patient elected to have trigger point injections administered. Departure Impression Primary Impression: Trapezius muscle spasm Additional Impressions: Episode of hypertension Vertigo Disposition: 01 HOME, SELF-CARE Condition: Improved Departure-Patient Inst. Decision time for Depature: 08:43 Referrals: NO,LOCAL PHYSICIAN (PCP/Family) Primary Care Physician Patient Instructions: Muscle Spasms (DC), Vertigo (a Type of Dizziness) Add. Discharge Instructions: Drink plenty of clear liquids to stay well-hydrated. This will help reduce muscle spasms. Icing or gentle heat in 20 minute intervals may help reduce pain and spasming. In general, heat helps relax muscles. Sometimes alternating heat and ice is helpful. Avoid postures and activities that exacerbate the pain. Use ibuprofen up to 600 mg every 6 hours as needed for primary pain control. Add Tylenol (acetaminophen) up to 1000 mg every 6 hours as needed for additional pain relief. For more severe pain or pain not controlled by [id number]-[id number] medications, use Ultram as prescribed. For very tight or spasming muscles, use cyclobenzaprine as prescribed. Follow-up with your primary care provider or orthopedist as needed for further treatment and evaluation. Monitor your blood pressure and follow-up with your primary care provider if it stays persistently high despite pain control. The cause of your vertigo is uncertain but may be related to your spike in blood pressure today. Please return to care if you have persistent problems with vertigo. Return to care immediately if you develop neurologic symptoms such as weakness of an extremity, facial drooping, difficulty speaking, confusion, loss of balance, etc. All discharge instructions reviewed with patient and/or family. Voiced understanding. Scripts Tramadol HCl (Ultram) 50 Mg Tablet 50 MG PO Q6H PRN for PAIN-BREAKTHROUGH, #10 TAB Prov: MARVIN ZUÑIGA MD 02/22/20 Cyclobenzaprine HCl (Cyclobenzaprine HCl) 10 Mg Tablet 10 MG PO Q8H PRN for SPASMS, #15 TAB 0 Refills Prov: MARVIN ZUÑIGA MD 02/22/20 MARVIN ZUÑIGA MD Feb 22, 2020 08:48
[2020-02-22 08:58] VITALS: BP 159/113
== END 2020-02-22 08:58 | disposition home or self-care (01) ==
LOC: EDUNIT# 07:03 → ER 07:05
DX: M62.838 Other muscle spasm (principal); I10 Essential (primary) hypertension; R42 Dizziness and giddiness; Z87.828 Personal history of other (healed) physical injury and trauma
CPT/HCPCS: 99284

== ENCOUNTER → 2021-12-24 | Outpatient (REF) ==
[~2021-12-24] MED LIST changes: +CYCL10TA25 PO; -OXYC-471 PO; +OXYC1TAB11 PO; +TRAM-42 PO
--- NOTE | 2021-12-24 16:20 | Diagnostic Imaging Report ---
INDICATION: Right knee pain. COMPARISON: None available. TECHNIQUE: Three radiographs of the right knee dated 12/24/2021. FINDINGS: Mild cortical irregularity is identified involving the lateral tibial plateau, seen on both the frontal and oblique radiographs. No additional fracture. No dislocation. Joint spaces are well maintained. No significant osteophytosis. No knee joint effusion. No suspicious radiopaque foreign body. IMPRESSION: Slight cortical irregularity involving the lateral tibial plateau. This could relate to an age-indeterminate nondisplaced fracture versus minimal osteophyte formation. CT of the knee would help to further evaluate as clinically indicated. Dictated by: Dictated on workstation # [id number]
== END | disposition home or self-care (01) ==
LOC: OCC 15:51
PROVIDERS: ATTEND Family Medicine
DX: Z01.818 Encounter for other preprocedural examination (principal)
CPT/HCPCS: 73562